=== PATIENT | male | born 1955 | race Caucasian/White ===

== ENCOUNTER 2019-05-09 06:29 | Day surgery (SDC) | payer BC ==
[~2019-05-09] VITALS: Ht 175.3 cm; Wt 81.7 kg
[~2019-05-09 06:29] MED LIST: ALEVE220 M1 PO; CLARITIN10 MG PO; DAILY MULTIPLE1 EACH PO; FISH OIL 1,0001 EAC6 PO; FLAXSEED1000 MG PO; FLUOXETINE HCL20 MG PO; NIACIN500 M1 PO; NORCO 5-325 TA1 EACH PO; RED YEAST RICE600 M1 PO; ZANTAC150 MG PO
[2019-05-09] MEDS ORDERED: ZETIA10 MG PO (06:58)
--- NOTE | 2019-05-09 07:50 | NUR ---
05/09/19 0750 Kala Lyons 0748- PT TO PACU IN POSTION. EYES CLOSED. DOES NOT OPEN EYES TO VOICE. BREATHING EASY AND UNLABORED. SPO2 >95% ON 3 L VIA NC.
--- NOTE | 2019-05-09 15:26 | OR ---
[facility] [place] [facility] [address] [place], [place] [address] Signed DATE OF OPERATION: 05/09/2019 SURGEON: Kika Johnson MD PREOPERATIVE DIAGNOSIS: Screening. POSTOPERATIVE DIAGNOSES: 1. Minimal to moderate sigmoid diverticulosis. 2. Minimal internal hemorrhoids. PROCEDURE: Colonoscopy without biopsy. ESTIMATED BLOOD LOSS: None. INDICATIONS: Radu is a 63-year-old gentleman, asked to see me for his initial screening colonoscopy. He has no lower GI complaints. There is no family history of colon cancer or polyps to his knowledge. I have reviewed in the office I gave Radu a pamphlet on colonoscopy. He understands the nature of the test along with the risks including, but not limited to gas bloating, crampy abdominal pain, bleeding, perforation requiring surgery, and missed diagnosis. He also understands the need for IV conscious sedation. He had expressed understanding and wished to proceed. PROCEDURE NOTE: Radu was taken into our endoscopy suite and placed in the left lateral decubitus position. He was given 7 mg of Versed and 150 mcg of fentanyl. A digital rectal exam was performed. He does have a moderately indurated and swollen prostate gland. The left side is a little more prominent than the right. No external hemorrhoids. Good sphincter tone. The adult colonoscope was then introduced and advanced all around into the cecum under direct visualization of camera without difficulty. His prep was good. We could easily see the appendiceal orifice and ileocecal valve. The scope was slowly withdrawn. We took pictures throughout for photodocumentation. He does have diverticulosis in the sigmoid colon. They were minimal to moderate in size, minimal to moderate in number, and scattered about. There were no polyps. The rectum was unremarkable. Upon retroflexion of scope, he has just minimal internal hemorrhoid columns. After this, the gas was suctioned out. Colonoscope removed. Radu tolerated procedure quite well. Electronically Signed By: KIKA JOHNSON MD 05/09/19 1526 PATIENT NAME: RADU PADILLA OPERATIVE REPORT DATE OF : 59 REPORT #: [id number] PHYSICIAN: KIKA JOHNSON MD PCP: DELORES GAMEZ MD REPORT IS CONFIDENTIAL AND NOT TO BE RELEASED WITHOUT AUTHORIZATION [address] [address] Signed RECOMMENDATIONS: Radu can follow up in 10 years for repeat colonoscopy. Kika Johnson MD ALB/MODL /[id number] cc: MD Delores Detxer MD Copies: KIKA JOHNSON MD, ROBERT D DMD ~ Electronically Signed By: KIKA JOHNSON MD 05/09/19 1526 PATIENT NAME: RADU PADILLA OPERATIVE REPORT DATE OF : 59 REPORT #: [id number] PHYSICIAN: KIKA JOHNSON MD PCP: DELORES GAMEZ MD REPORT IS CONFIDENTIAL AND NOT TO BE RELEASED WITHOUT AUTHORIZATION
== END 2019-05-09 09:00 | disposition home or self-care (01) ==
LOC: DS 06:29 → OPS 06:29 → DS 06:45 → OPS 09:00
PROVIDERS: Colon & Rectal Surgery
PROC: 0DJD8ZZ Inspection of Lower Intestinal Tract, Via Natural or Artificial Opening Endoscopic (ICD-10-PCS; principal; 2019-05-09 06:45)
DX: Z12.11 Encounter for screening for malignant neoplasm of colon (principal); K64.8 Other hemorrhoids; K57.30 Diverticulosis of large intestine without perforation or abscess without bleeding; Z79.899 Other long term (current) drug therapy
CPT/HCPCS: 99153; G0500; J2250; J3010; J7121

== ENCOUNTER 2020-12-18 09:11 | Emergency (ER) | payer BC ==
[~2020-12-18] VITALS: Ht 175.3 cm; Wt 81.7 kg
[~2020-12-18 09:11] MED LIST changes: +ZETIA10 MG PO
--- NOTE | 2020-12-18 17:54 | EKG ---
[facility] [address] [facility] [place], [place] [address] Signed Normal sinus rhythm Normal ECG No previous ECGs available Confirmed by ERIC HERNANDEZ MD ([id number]) on 12/18/2020 5:53:51 PM Electronically Signed By: ERIC HERNANDEZ MD 12/18/20 1754 PATIENT NAME: HUGH PADILLA Electrocardiogram DATE OF : 59 PHYSICIAN: ERIC HERNANDEZ MD REPORT #: [id number] REPORT IS CONFIDENTIAL AND NOT TO BE RELEASED WITHOUT AUTHORIZATION
== END 2020-12-18 13:09 | disposition home or self-care (01) ==
LOC: ED 09:11
DX: R00.2 Palpitations (principal); R55 Syncope and collapse; Z87.891 Personal history of nicotine dependence; Z88.8 Allergy status to other drugs, medicaments and biological substances; Z79.899 Other long term (current) drug therapy
CPT/HCPCS: 71045; 80053; 83735; 84484; 85025; 93005; 93010; 99285-25

== ENCOUNTER 2021-07-01 05:17 | Emergency (ER) | payer BC ==
[~2021-07-01] VITALS: Ht 175.3 cm; Wt 80.7 kg
--- OUTSIDE RECORDS SUMMARY | 2021-07-01 06:52 | XMS ---
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 Arturo has no Care Guidelines for this patient. [facility] VISIT COUNT (12 MO.) 2 [facility] Colon TOTAL 2 NOTE: Visits indicate total known visits. ED/[facility] VISIT TRACKING (12 MO.) 07/01/2021 05:18 [facility] [place] TYPE: Emergency COMPLAINT: - RAPID HEART RATE 12/18/2020 09:[address] [facility] [place] TYPE: Emergency COMPLAINT: - POSS HEART ATTACK DIAGNOSES: - Syncope and collapse - Personal history of nicotine dependence - Allergy status to other drugs, medicaments and biological substances - Palpitations - Chest pain, unspecified - Other chcf (current) drug therapy INPATIENT VISIT TRACKING (12 MO.) No inpatient visits to display in this time frame [email or web address]
--- NOTE | 2021-07-01 12:52 | EKG ---
[facility] [address] [facility] [place] [address] Signed Normal sinus rhythm Normal ECG When compared with ECG of 18-DEC-2020 09:23, Vent. rate has increased BY 33 BPM Nonspecific T wave abnormality now evident in Anterior leads Confirmed by HENRY ACOSTA DO ([id number]) on 07/01/2021 12:52:04 PM Electronically Signed By: HENRY ACOSTA DO 07/01/21 1252 PATIENT NAME: HUGH PADILLA Electrocardiogram DATE OF : 59 PHYSICIAN: HENRY ACOSTA DO REPORT #: [id number] REPORT IS CONFIDENTIAL AND NOT TO BE RELEASED WITHOUT AUTHORIZATION
== END 2021-07-01 06:49 | disposition home or self-care (01) ==
LOC: ED 05:17
DX: R00.2 Palpitations (principal); Z87.891 Personal history of nicotine dependence; Z88.8 Allergy status to other drugs, medicaments and biological substances; Z79.899 Other long term (current) drug therapy
CPT/HCPCS: 80053; 84443; 85025; 93005; 93010; 96374; 99285-25; J7030